=== PATIENT | female | born 1955 | race Caucasian/White ===

== ENCOUNTER → 2021-09-26 | Outpatient (CLI) | payer MEDICARE, OTHER ==
[~2021-09-26] MED LIST: ATROVENT HFA12.9 GM INH; CRANBERRY PO; DETROL LA4 MG PO; ETODOLAC400 MG PO; FLUPHENAZINE HCL5 MG PO; LIPITOR10 MG PO; PRIMROSE OIL PO; PROTONIX40 MG PO; TYLENOL EXTRA500 MG PO
== END ==
LOC: OPSV2 11:00
DX: Z01.810 Encounter for preprocedural cardiovascular examination (principal)
CPT/HCPCS: 93005

== ENCOUNTER → 2021-10-12 | Day surgery (SDC) | payer MEDICARE, OTHER ==
[2021-10-12 17:11] LABS: BODY FLUID SOURCE BRONCH RIGHT LUNG
== END | disposition home or self-care (01) ==
LOC: OR 11:34
PROVIDERS: Internal Medicine Pulmonary Disease
DX: C34.90 Malignant neoplasm of unspecified part of unspecified bronchus or lung (principal); C77.1 Secondary and unspecified malignant neoplasm of intrathoracic lymph nodes; J44.9 Chronic obstructive pulmonary disease, unspecified; K21.9 Gastro-esophageal reflux disease without esophagitis; E78.00 Pure hypercholesterolemia, unspecified; E11.9 Type 2 diabetes mellitus without complications; Z72.0 Tobacco use; Z88.0 Allergy status to penicillin; Z88.8 Allergy status to other drugs, medicaments and biological substances
CPT/HCPCS: 82962; 87015; 87070; 87116; 87205; 89051; J2710; J3010

== ENCOUNTER → 2021-10-28 | Outpatient (CLI) | payer MEDICARE, OTHER ==
[2021-10-28 16:13] LABS: HEMOGLOBIN 14.3 gm/dl (12.3-15.3); RED BLOOD COUNT 4.56 M/UL (4.00-5.10); WHITE BLOOD COUNT 11.1 K/UL (4.5-11.0)
[2021-10-28 16:37] LABS: BUN/CREATININE RATIO 19 (0-10)
== END ==
LOC: MRI 10-25 14:00
PROVIDERS: Internal Medicine Hematology & Oncology
DX: R91.1 Solitary pulmonary nodule (principal)
CPT/HCPCS: 36415; 80053; 85025

== ENCOUNTER → 2021-11-02 | Day surgery (SDC) | payer MEDICARE, OTHER ==
[~2021-11-02] VITALS: Ht 160 cm; Wt 81.6 kg
[~2021-11-02] MED LIST changes: +LORAZEPAM0.5 MG PO
== END | disposition home or self-care (01) ==
LOC: OR 07:25
DX: C78.00 Secondary malignant neoplasm of unspecified lung (principal); C80.1 Malignant (primary) neoplasm, unspecified; J44.9 Chronic obstructive pulmonary disease, unspecified; K21.9 Gastro-esophageal reflux disease without esophagitis; E78.00 Pure hypercholesterolemia, unspecified; E03.9 Hypothyroidism, unspecified; M81.0 Age-related osteoporosis without current pathological fracture; M06.9 Rheumatoid arthritis, unspecified; E11.9 Type 2 diabetes mellitus without complications; F17.210 Nicotine dependence, cigarettes, uncomplicated; Z88.8 Allergy status to other drugs, medicaments and biological substances; Z88.0 Allergy status to penicillin; Z79.899 Other long term (current) drug therapy
CPT/HCPCS: 71045; 76000; C1769; C1788; J1100; J1642; J2001; J2370; J2405; J2704; J3010; J7040

== ENCOUNTER → 2021-11-04 | Outpatient (CLI) | payer MEDICARE, OTHER | LOC: EMI 09:14 | DX: R91.1 Solitary pulmonary nodule (principal); R90.82 White matter disease, unspecified | CPT/HCPCS: 70553; A9577 ==

== ENCOUNTER → 2021-11-09 | Outpatient (CLI) | payer MEDICARE, OTHER | LOC: KOH-I 10:23 | DX: R91.1 Solitary pulmonary nodule (principal); C34.11 Malignant neoplasm of upper lobe, right bronchus or lung | CPT/HCPCS: 71046 ==

== ENCOUNTER → 2021-11-10 | Outpatient (CLI) | payer MEDICARE, OTHER | LOC: HEART 5 09:32 | DX: C34.90 Malignant neoplasm of unspecified part of unspecified bronchus or lung (principal); R06.02 Shortness of breath | CPT/HCPCS: 94010; 94729 ==

== ENCOUNTER → 2021-12-05 | Outpatient (CLI) | payer MEDICARE, OTHER | LOC: KOH-I 12:12 | DX: C34.90 Malignant neoplasm of unspecified part of unspecified bronchus or lung (principal); R04.2 Hemoptysis; R07.89 Other chest pain | CPT/HCPCS: 71046 ==